=== PATIENT | male | born 1960 | race Caucasian/White ===

== ENCOUNTER 2017-09-22 07:30 | Inpatient (IN) ==
[2017-09-14 12:21] LABS: Appearance,Urine CLEAR; Bilirubin,Urine NEG (NEG); Color,Urine STRAW; Glucose,Urine (UA) NEGATIVE (NEG); Leukocyte Esterase,Urine NEG /uL (NEG); Protein,Urine NEG (NEG); Specific Gravity,Urine 1.009 (1.000-1.035); Urine Blood NEG mg/dL (<0.03); Urobilinogen,Urine NEG (NEG)
[2017-09-14 12:50] LABS: Blood Urea Nitrogen 17 mg/dl (6-20)
[2017-09-14 12:56] LABS: Basophils # (Auto) 0 K/mcL (0.0-0.3); Basophils % (Auto) 0.4 % (0.0-2.0); Eosinophils # (Auto) 0.2 K/mcL (0.0-0.7); Granulocytes % (Auto) 68.7 % (38.0-78.0); Lymphocytes # (Auto) 1.9 K/mcL (1.5-4.8); Lymphocytes % (Auto) 20.9 % (15.5-49.0); Mean Cell Volume 89.2 fL (80.0-100.0); Mean Corpuscular HGB Conc 34.4 g/dL (31.0-36.0); Mean Corpuscular Hemoglobin 30.7 pg (26.0-34.0); Monocytes # (Auto) 0.7 K/mcL (0.1-0.9); Platelet Count 230 K/mcL (140-440); RBC 4.71 M/mcL (4.50-5.90); Red Cell Distribution Width 12.3 % (11.5-14.5)
[~2017-09-22 07:30] MED LIST: 0.9 % SODIUM CHLORIDE 9 ML, KETOROLAC 30 MG, ROPIVACAINE HCL/PF 49.5 ML, EPINEPHrine 0.... IJ SCH; CELECOXIB 200 MG CAPSULE PO SCH; PREGABALIN 75 MG CAPSULE PO SCH; ceFAZolin 1 GM VIAL IV SCH; oxyCODONE 10 MG TAB.ER.12H PO SCH
[2017-09-22] MEDS ORDERED: SCOPOLAMINE 1 PATCH PATCH TOPICAL ONE (17:31)
[2017-09-22] MEDS ORDERED: ceFAZolin 1 GM VIAL IV SCH (18:15)
[2017-09-22] MEDS ORDERED: oxyCODONE HCL 5 MG TABLET PO ONE (20:12)
[2017-09-22] MEDS ORDERED: SUCCINYLCHOLINE 20 MG/ML ML IV ONE (21:30)
[2017-09-22] MEDS ORDERED: MIDAZOLAM 5 MG/5 ML VIAL IV ONE (21:30)
[2017-09-22] MEDS ORDERED: DEXAMETHASONE 10 MG/ML VIAL IV ONE (21:30)
[2017-09-22] MEDS ORDERED: TRANEXAMIC ACID 1,000 MG/10 ML VIAL IV ONE ×2 (21:30→22:54)
[2017-09-22] MEDS ORDERED: PROPOFOL 200 MG/20 ML VIAL IV ONE (21:30)
[2017-09-22] MEDS ORDERED: ROPIVACAINE HCL/PF 20 ML VIAL IJ ONE (21:30)
[2017-09-22] MEDS ORDERED: ONDANSETRON 4 MG/2 ML VIAL IV ONE (21:30)
[2017-09-22] MEDS ORDERED: LIDOCAINE HCL/PF 100 MG/5 ML SYRINGE IV ONE (21:30)
[2017-09-22] MEDS ORDERED: GENTAMICIN SULFATE 800 MG/20 ML VIAL IR ONE (22:06)
[2017-09-22] MEDS ORDERED: ACETAMINOPHEN 1,000 MG/100 ML BOTTLE IV ONE (22:07)
[2017-09-22] MEDS ORDERED: METHOCARBAMOL 1,000 MG/10 ML VIAL IV PRN (22:07)
[2017-09-22] MEDS ORDERED: ONDANSETRON 4 MG/2 ML VIAL IV PRN ×2 (22:07→22:54)
[2017-09-22] MEDS ORDERED: MEPERIDINE 25 MG/ML SYRINGE IV PRN (22:07)
[2017-09-22] MEDS ORDERED: diphenhydrAMINE 50 MG/ML VIAL IV PRN (22:07)
[2017-09-22] MEDS ORDERED: METOCLOPRAMIDE 10 MG/2 ML VIAL IV PRN (22:07)
[2017-09-22] MEDS ORDERED: fentaNYL 100 MCG/2 ML VIAL IV PRN (22:07)
[2017-09-22] MEDS ORDERED: HYDROmorphone 2 MG/ML VIAL IV PRN (22:07)
[2017-09-22] MEDS ORDERED: IPRATROPIUM/ALBUTEROL 3 ML AMPUL.NEB NEB PRN (22:07)
[2017-09-22] MEDS ORDERED: METOPROLOL TARTRATE 5 MG/5 ML VIAL IV PRN (22:07)
[2017-09-22] MEDS ORDERED: ePHEDrine 50 MG/ML AMPUL IV PRN (22:07)
[2017-09-22] MEDS ORDERED: ATROPINE SULFATE 0.4 MG/ML VIAL IV PRN (22:07)
[2017-09-22] MEDS ORDERED: PROMETHAZINE 25 MG/ML VIAL IV PRN (22:07)
[2017-09-22] MEDS ORDERED: NALOXONE HCL 0.4 MG/ML VIAL IV PRN (22:07)
[2017-09-22] MEDS ORDERED: FLUMAZENIL 0.1 MG/ML ML IV PRN (22:07)
[2017-09-22] MEDS ORDERED: LACTATED RINGERS 1,000 ML IV SCH (22:15)
[2017-09-22] MEDS ORDERED: MAGNESIUM HYDROXIDE 30 ML ORAL.SUSP PO PRN (22:54)
[2017-09-22] MEDS ORDERED: ONDANSETRON ODT 4 MG TABLET SL PRN (22:54)
[2017-09-22] MEDS ORDERED: POLYETHYLENE GLYCOL 3350 17 GM PACKET PO PRN (22:54)
[2017-09-22] MEDS ORDERED: FLEETS ADULT ENEMA PR PRN (22:54)
[2017-09-22] MEDS ORDERED: BENZOCAINE/MENTHOL 1 LOZENGE PO PRN (22:54)
[2017-09-22] MEDS ORDERED: BISACODYL 10 MG SUPP.RECT PR PRN (22:54)
--- NOTE | 2017-09-22 22:54 | Brief Operative Note ---
Date of procedure: 09/22/17 Pre-op diagnosis: left knee oa Post-op diagnosis: same Procedure: left total knee arthroplasty Grafts/Implants: Yes Anesthesia: spinal Complications: none Surgeon: Manjinder Marie Fire Hydrant Mechanic: Irina Velazquez Estimated blood loss (cc): 150 Tourniquet Time (Minutes): 69 Specimens Removed/Pathology: none sent Condition: stable Disposition: PACU
[2017-09-22] MEDS ORDERED: GABAPENTIN 300 MG CAPSULE PO PRN (22:56)
[2017-09-22] MEDS ORDERED: DEXTROSE 31 GM ORAL.SUSP PO PRN (22:59)
[2017-09-22] MEDS ORDERED: DEXTROSE 50% 50 ML VIAL IV PRN (22:59)
[2017-09-23] MEDS ORDERED: KETOROLAC 30 MG/ML VIAL ONE ×2 (00:31→05:45)
[2017-09-23] MEDS: ceFAZolin 1 GM VIAL ONE ×2 (00:40→00:43)
[2017-09-23] MEDS: KETOROLAC 30 MG/ML VIAL IV SCH ×4 (00:40→18:28)
[2017-09-23] MEDS: ceFAZolin 1 GM VIAL IV SCH ×3 (00:40→07:19)
[2017-09-23] MEDS: 0.9 % SODIUM CHLORIDE 1,000 ML IV SCH ×4 (00:42→23:25)
[2017-09-23] MEDS: HYDROcodone/APAP 10/325MG TABLET PO PRN ×6 (01:40→22:09)
[2017-09-23] MEDS: HYDROcodone/APAP 10/325MG TABLET PO ONE ×5 (01:40→07:02)
[2017-09-23] MEDS: 0.9 % SODIUM CHLORIDE 10 ML SYRINGE IV SCH ×3 (05:45→22:11)
[2017-09-23] MEDS: FERROUS SULFATE 325 MG TABLET PO SCH ×2 (07:19→17:04)
[2017-09-23] MEDS: metFORMIN 500 MG TABLET PO SCH ×2 (07:19→17:04)
[2017-09-23] MEDS: DIGESTIVE PO SCH ×2 (07:27→15:54)
--- NOTE | 2017-09-23 07:35 | Orthopedic Progress Note ---
Subjective Patient information: Note initiated : 09/23/17 at 7:34 am Service Date, if different from initiated Date: [] Patient: London Cadet 57 y/o M admitted on 09/22/17 for Left Total Knee Arthroplasty. Chief Complaint: [] Interval history: doing well no complaints Objective Vital signs: Vital Signs Temp Pulse Resp BP Pulse Ox 09/23/17 07:00 72 09/23/17 02:57 97.7 F 72 12 120/73 96 09/23/17 01:57 68 124/77 96 09/23/17 01:27 71 131/86 95 09/23/17 00:57 72 127/79 95 09/23/17 00:42 75 126/83 92 09/23/17 00:27 74 129/86 90 09/23/17 00:12 73 138/87 91 09/22/17 23:57 97.0 F 75 12 131/78 94 09/22/17 23:47 98.1 F 72 14 132/86 98 09/22/17 23:35 98.5 F 84 16 134/78 98 09/22/17 23:19 97.0 F 80 10 L 137/68 99 09/22/17 17:30 97.8 F 78 16 112/62 95 Intake and Output 09/22/17 09/23/17 09/23/17 21:59 05:59 13:59 Intake Total 2350 / 2350 Balance 2350 / 2350 Intake: IV 100 / 100 Oral 250 / 250 IV - Manual Only 1999 Other: # Voids 1 Weight 239 lb 250 lb 8 oz Intake & Output: Intake & Output 09/22/17 09/23/17 09/23/17 21:59 05:59 13:59 Intake Total 2350 / 2350 Balance 2350 / 2350 Weight 239 lb 250 lb 8 oz Intake: IV 100 / 100 Oral 250 / 250 IV - Manual Only 1999 Other: # Voids 1 Incision: Yes healing Incision clean and dry: Yes Dressing: Yes clean, Yes dry, Yes intact Weight bearing status: full Neurological exam IM: Yes alert, Yes normal gait, Yes oriented X3, Yes motor sensory intact, Yes neurovascular intact Extremities exam IM: No calf tenderness, Yes Foot pink and warm, Yes neurovascular intact - Labs CBC & BMP: 09/23/17 04:55 09/14/17 10:09 Labs: Orthopedic Labs 09/14/17 10:08 PT 12.6 INR 0.9 09/23/17 09/14/17 04:55 10:09 Hgb 13.5 14.5 Hct 39.6 L 42.0 Assessment and Plan (1) Knee osteoarthritis pod 1 s/p tka pain control dvt prophylaxis dc planning - likely home tomorrow Status: Acute
[2017-09-23] MEDS: INSULIN LISPRO 1 UNIT/0.01 ML UNIT SQ SCH ×4 (07:45→22:10)
--- NOTE | 2017-09-23 08:18 | XRay Report ---
HISTORY: Reason for Exam:Post-Op Total Knee FINDINGS: There is a well-positioned left total knee prosthesis. No fracture is present. There are stable chronic dystrophic calcifications adjacent to the superior aspect of both medial and lateral femoral epicondyles. A spur is seen along the superior border of the anterior tibial tubercle. IMPRESSION: Well-positioned left knee prosthesis Interpreted and Authenticated by: Ruben Shannon 09/23/17
[2017-09-23] MEDS: HYDROCHLOROTHIAZIDE 25 MG TABLET PO SCH (09:05)
[2017-09-23] MEDS: ASPIRIN 81 MG TAB.CHEW PO SCH (09:05)
[2017-09-23] MEDS: DOCUSATE SODIUM 100 MG CAPSULE PO SCH ×2 (09:05→22:10)
[2017-09-23] MEDS: LISINOPRIL 20 MG TABLET PO SCH ×2 (09:05→22:10)
[2017-09-23] MEDS: CLOPIDOGREL 75 MG TABLET PO SCH (09:05)
[2017-09-23] MEDS: GLUCOSAMINE/CHONDROITIN SULF A 1 CAP CAPSULE PO SCH ×2 (09:06→22:10)
[2017-09-23] MEDS: HYDROXYTRYPTOPHAN 100 MG PO SCH ×2 (09:15→22:10)
--- NOTE | 2017-09-23 09:36 | Operative Note ---
DATE OF OPERATION: 09/22/2017 PREOPERATIVE DIAGNOSIS: Degenerative joint disease, left knee. POSTOPERATIVE DIAGNOSIS: Degenerative joint disease, left knee. PROCEDURE: Left total knee arthroplasty. SURGEON: Isaiah Marie M.D. DIRECTOR DIETETICS DEPARTMENT SURGEON: Irina Velazquez PA-C ANESTHESIA: Spinal with LMA assist. ESTIMATED BLOOD LOSS: 150 mL COMPLICATIONS: None noted. SPECIMENS REMOVED: None. DRAINS: None. TOURNIQUET TIME: 69 minutes at 300 mmHg. IMPLANTS: DePuy CMW2 gentamycin bone cement 20 grams x4, DePuy Attune femoral posterior stabilized size 9 left cemented, DePuy Attune tibial insert fixed bearing posterior stabilized size 9, 6 mm AOX, DePuy Attune tibial based fixed bearing size 8 cemented, DePuy Attune patella medialized dome 41 mm cemented AOX. INDICATIONS: The patient has had a long-standing history of worsening pain in the knee that has failed conservative treatment. Radiographs have confirmed advanced degenerative joint disease. After a long discussion about treatment options, the patient elected to proceed with a knee arthroplasty. The risks and benefits were discussed with the patient in detail including, but not limited to, the risks of anesthesia, problems with the heart or lungs related to anesthesia, infection, compromise or injury to the nerves and blood vessels, deep venous thrombosis, pulmonary embolism, pneumonia, continued pain after surgery, worsening pain or symptoms after surgery, swelling, loss of motion, instability, leg length discrepancy, and need for repeat surgery. DESCRIPTION OF PROCEDURE: The patient was seen in the pre-anesthesia waiting room where all questions were answered and the correct side and site were identified and marked. The patient was transferred to the operating room and administered the anesthetic and given pre-operative antibiotics. A time-out was then called. The extremity was prepped and draped, exsanguinated, and the tourniquet was inflated to 300 mmHg. A midline skin incision was then made with a standard medial parapatellar arthrotomy. Debridement of the menisci, ACL, and PCL was performed followed by balancing releases in the medial lateral plane. We then established intramedullary access to both the femur and tibia in a standard fashion. The femoral guide missy was initially placed with the distal femoral guide, pinned into place, and the distal femoral cut was performed and checked with a flat plate. We then turned our attention to the tibia. The intramedullary guide was placed with the proximal tibial cutting block. The block was appropriately positioned off the affected side, varus and valgus was checked with the extra-medullary guide, and the block was pinned into place. The proximal tibial cut was performed and the tibia was prepared for the tibial implant with appropriate rotation. The tibia, femur, and posterior compartment were debrided of osteophytes, loose bodies, and meniscal fragments We then used the gap balancing technique to balance extension with the first two cuts and good balancing was obtained with a 10 millimeter gap block. We turned our attention back to the femur and used the referencing block and implant to size appropriately. Using the gap balancing technique for the flexion space we set our rotation of the femur off the tibial cut. Anesthesia gave the patient 1 gram of Tranexamic Acid via an intravenous route. We placed the 4 in 1 cutting block and made anterior, posterior, and chamfer cuts. Box plasty cuts were then made in a standard fashion for the posterior stabilized prosthesis. We then completed osteophyte release and posterior capsule release from the posterior compartment. Trials were placed and we chose the polyethylene insert thickness that provided the best stability in all planes. With the trials in place, we did a measured resection for a resurfacing patella. We sized the patella and placed the patella trial and performed a lateral facetectomy with the saw and rongeur. Good tracking was obtained. We removed all trials, irrigated and dried all cut surfaces. We cemented the components into place including tibia, femur and patella. We placed a trial liner and held the knee in full extension with the patella compressed while the cement cured. We then removed all excess cement and placed the final polyethylene tibiofemoral component. Irrigation with 3 liters of antibiotic saline was then performed using jet-lavage. We let the tourniquet down and coagulated bleeding vessels. We injected a 100 cubic centimeter volume including Ropivacaine 49.25 cubic centimeters at 5 milligrams per cubic centimeter, Ketorolac 30 milligrams, and Epinephrine 0.5 milligrams into 100 cubic centimeters volume of normal saline. We closed the retinaculum with #2 Stratafix and 0 Vicryl. We closed the subcutaneous tissue and skin in layers out to Dermabond on the skin. A sterile pressure dressing was applied. All needle and sponge counts were correct. The patient was transferred to the recovery room in stable condition. MAITE:[email or web address] Job ID: [id number] Doc ID: [id number] Isaiah Marie MD
[2017-09-23] MEDS: METHOCARBAMOL 750 MG TABLET PO PRN ×2 (11:52→22:09)
[2017-09-23] MEDS ORDERED: SENNOSIDES 1 TABLET PO SCH ×2 (21:00)
[2017-09-23] MEDS ORDERED: ATORVASTATIN 20 MG TABLET PO SCH (21:00)
[2017-09-24] MEDS: KETOROLAC 30 MG/ML VIAL IV SCH ×2 (00:09→06:25)
[2017-09-24] MEDS: HYDROcodone/APAP 10/325MG TABLET PO PRN ×3 (05:10→11:20)
[2017-09-24] MEDS: METHOCARBAMOL 750 MG TABLET PO PRN (05:10)
[2017-09-24] MEDS: 0.9 % SODIUM CHLORIDE 10 ML SYRINGE IV SCH (06:26)
--- NOTE | 2017-09-24 07:20 | Orthopedic Progress Note ---
Subjective Patient information: Note initiated : 09/24/17 at 7:19 am Service Date, if different from initiated Date: [] Patient: London Cadet 57 y/o M admitted on 09/22/17 for Left Total Knee Arthroplasty. Chief Complaint: [] Interval history: doing well, no complaints Objective Vital signs: Vital Signs Temp Pulse Resp BP Pulse Ox 09/24/17 06:38 98.5 F 68 18 127/86 93 09/24/17 04:20 98.5 F 66 20 130/82 95 09/24/17 00:00 98.2 F 74 20 103/62 97 09/23/17 20:00 98.2 F 67 20 100/62 94 09/23/17 16:00 98.6 F 67 14 104/62 94 09/23/17 14:49 74 09/23/17 12:00 98.2 F 74 14 110/64 94 09/23/17 11:00 77 09/23/17 08:00 77 09/23/17 07:52 97.5 F 77 14 134/78 93 Intake and Output 09/23/17 09/24/17 09/24/17 21:59 05:59 13:59 Intake Total 1080 / 1080 400 / 400 1000 / 1000 Output Total 350 / 350 1075 / 1075 200 / 200 Balance 730 / 730 -675 / -675 800 / 800 Intake: Oral 1080 / 1080 400 / 400 1000 / 1000 Output: Void Amount 350 / 350 1075 / 1075 200 / 200 Other: Meal Lunch Percent of Meal Consumed 100% Feeding Ability Independent # Voids 1 1 Weight 260 lb Intake & Output: Intake & Output 09/23/17 09/24/17 09/24/17 21:59 05:59 13:59 Intake Total 1080 / 1080 400 / 400 1000 / 1000 Output Total 350 / 350 1075 / 1075 200 / 200 Balance 730 / 730 -675 / -675 800 / 800 Weight 260 lb Intake: Oral 1080 / 1080 400 / 400 1000 / 1000 Output: Void Amount 350 / 350 1075 / 1075 200 / 200 Other: Meal Lunch Percent of Meal Consumed 100% Feeding Ability Independent # Voids 1 1 Incision: Yes healing Incision clean and dry: Yes Dressing: Yes clean, Yes dry, Yes intact Weight bearing status: full Neurological exam IM: Yes alert, Yes normal gait, Yes oriented X3, Yes motor sensory intact, Yes neurovascular intact Extremities exam IM: No calf tenderness, Yes Foot pink and warm, Yes neurovascular intact - Labs CBC & BMP: 09/24/17 05:07 09/14/17 10:09 Labs: Orthopedic Labs 09/14/17 10:08 PT 12.6 INR 0.9 09/24/17 09/23/17 09/14/17 05:07 04:55 10:09 Hgb 11.3 L 13.5 14.5 Hct 32.6 L 39.6 L 42.0 Assessment and Plan (1) Knee osteoarthritis pod 2 s/p tka pain control dvt prophylaxis dc planning - home today Status: Acute
--- NOTE | 2017-09-24 07:25 | Discharge Summary ---
Ortho Discharge - TKA - Patient Instructions Diet: Regular Diet Activity: activity as tolerated, weight bearing as tolerated Total Knee Protocol: For Total Knee: Start ROM KIKE with stationary bike or rocking chair. Work on gaining full extension of knee. Posterior dislocation precautions provided. Hip abductor strengthening and gait training instructions provided. Apply Cryocuff as instructed. Dressing Care: May shower in 2 days Patient Education: Total Knee Replacement (DC) Additional Instructions: Discharge Instructions: Resume home diet as tolerated. Do the exercises at home that physical therapy gave you. Elevate and use your Cryocuff or ice packs as directed, on for 20 minutes at a time throughout the day. This and elevation will help with pain and swelling. Follow up with [facility] on 10/07/17 at 10:20 am. Follow up with [facility] on . Take your prescription, photo ID, insurance cards, and current medication list with you to your first physical therapy appointment. Wear comfortable clothing for your physical therapy. Weight bearing as tolerated. You have Dermabond (a dressing with a mesh-like appearance), DO NOT remove mesh. Cover site daily with gauze dressing. You may start showering on post op day #2. The Dermabond dressing can get wet, do not scrub dressing. Pat dry, then place new dressing (above). Take Aspirin twice daily, for 30 days, as prescribed to prevent blood clots ( see medication list). Pain medication can cause constipation. Take an over the counter stool softener while on pain medication. Your prescriptions are with your discharge information. Some medications were electronically transmitted to your pharmacy of choice. Take your prescription to pick and shovel man any medication or equipment (such as walker, crutches, toilet riser or C.P.M.) Return to the ER for uncontrolled pain, unable to go to the bathroom, chills, fever, nausea and/or vomiting, signs of infection, bleeding, redness, swelling, chest pain, shortness of breath or other acute symptom. - Problem Maintenance (1) Knee osteoarthritis Status: Acute - Follow Up Plan Follow Up Appointments: Manjinder Marie MD [Physician] - 10/07/17 10:20 am () Disposition: Home, Self-Care Prognosis: Good Rehab Potential: Good I certify that the patient requires SNF services: No Overall status at discharge: patient is progressing back to baseline
[2017-09-24] MEDS: DOCUSATE SODIUM 100 MG CAPSULE PO SCH (09:11)
[2017-09-24] MEDS: metFORMIN 500 MG TABLET PO SCH (09:11)
[2017-09-24] MEDS: FERROUS SULFATE 325 MG TABLET PO SCH (09:11)
[2017-09-24] MEDS: ASPIRIN 81 MG TAB.CHEW PO SCH (09:11)
[2017-09-24] MEDS: GLUCOSAMINE/CHONDROITIN SULF A 1 CAP CAPSULE PO SCH (09:11)
[2017-09-24] MEDS: CLOPIDOGREL 75 MG TABLET PO SCH (09:11)
[2017-09-24] MEDS: LISINOPRIL 20 MG TABLET PO SCH (09:11)
[2017-09-24] MEDS: HYDROCHLOROTHIAZIDE 25 MG TABLET PO SCH (09:11)
[2017-09-24] MEDS: INSULIN LISPRO 1 UNIT/0.01 ML UNIT SQ SCH (09:14)
[2017-09-24] MEDS: 0.9 % SODIUM CHLORIDE 1,000 ML IV SCH (11:26)
[2017-09-24] MEDS: HYDROXYTRYPTOPHAN 100 MG PO SCH (11:26)
[2017-09-24] MEDS: DIGESTIVE PO SCH (11:26)
== END 2017-09-24 11:30 | disposition home or self-care (01) | DRG 470 ==
LOC: MEDSUR 15:26
PROVIDERS: ADMIT Orthopaedic Surgery Sports Medicine; ATTEND Orthopaedic Surgery Sports Medicine

== ENCOUNTER 2019-02-08 05:07 | Inpatient (IN) ==
[2019-02-02 15:43] LABS: Appearance,Urine CLEAR; Bilirubin,Urine NEG (NEG); Color,Urine STRAW; Culture Indicated,Urine NO; Glucose,Urine (UA) NEGATIVE (NEG); Ketones,Urine NEG (NEG); Leukocyte Esterase,Urine NEG /uL (NEG); Nitrate,Urine NEG (NEG); Protein,Urine NEG (NEG); Specific Gravity,Urine 1.011 (1.000-1.035); Urine Blood NEG mg/dL (<0.03); Urobilinogen,Urine NEG (NEG)
[2019-02-02 18:32] LABS: Basophils # (Auto) 0 K/mcL (0.0-0.3); Basophils % (Auto) 0.3 % (0.0-2.0); Eosinophils # (Auto) 0.2 K/mcL (0.0-0.7); Eosinophils % (Auto) 1.9 % (0.0-7.0); Granulocytes % (Auto) 69.4 % (38.0-78.0); Lymphocytes # (Auto) 2.2 K/mcL (1.5-4.8); Lymphocytes % (Auto) 20.3 % (15.5-49.0); Mean Cell Volume 88.1 fL (80.0-100.0); Mean Corpuscular HGB Conc 33.2 g/dL (31.0-36.0); Mean Platelet Volume 7.6 fL (7.4-10.4); Monocytes # (Auto) 0.9 K/mcL (0.1-0.9); Monocytes % (Auto) 8.1 % (1.0-12.0); Platelet Count 293 K/mcL (140-440); RBC 4.77 M/mcL (4.50-5.90); Red Cell Distribution Width 14.6 % (11.5-14.5); WBC 10.7 K/mcL (4.5-11.0)
[2019-02-02 19:18] LABS: INR 0.9 (0.9-1.1); Prothrombin Time 12.4 sec (11.9-14.5)
[2019-02-02 19:51] LABS: Blood Urea Nitrogen 15 mg/dl (6-20); Carbon Dioxide 25 mmol/L (22-30); Chloride 99 mmol/L (96-108); Glomerular Filtration Rate 82; Glucose 80 mg/dL (70-105)
[2019-02-02 19:57] LABS: Estimated Average Glucose(eAG) 134 mg/dL; Hemoglobin A1C 6.3 % HGB (4.0-6.0)
[2019-02-08] MEDS ORDERED: SCOPOLAMINE 1 PATCH PATCH TOPICAL ONE (06:00)
[2019-02-08] MEDS ORDERED: oxyCODONE 10 MG TAB.ER.12H PO SCH (06:00)
[2019-02-08] MEDS ORDERED: CELECOXIB 200 MG CAPSULE PO SCH (06:00)
[2019-02-08] MEDS ORDERED: ceFAZolin 2 GM in DEXTROSE 5% IN WATER 50 ML IV SCH (06:00)
[2019-02-08] MEDS ORDERED: 0.9 % SODIUM CHLORIDE 9 ML, KETOROLAC 30 MG, ROPIVACAINE HCL/PF 49.5 ML, EPINEPHrine 0.... IJ SCH (06:00)
[2019-02-08] MEDS ORDERED: PREGABALIN 75 MG CAPSULE PO SCH (06:00)
[2019-02-08] MEDS ORDERED: IPRATROPIUM/ALBUTEROL 3 ML AMPUL.NEB NEB PRN ×2 (06:06→09:21)
[2019-02-08] MEDS ORDERED: SCOPOLAMINE 1 PATCH PATCH TOPICAL PRN (06:06)
[2019-02-08] MEDS ORDERED: GENTAMICIN SULFATE 800 MG/20 ML VIAL IR ONE (07:17)
[2019-02-08] MEDS ORDERED: ONDANSETRON 4 MG/2 ML VIAL IV ONE (07:40)
[2019-02-08] MEDS ORDERED: LIDOCAINE HCL/PF 100 MG/5 ML SYRINGE IV ONE (07:40)
[2019-02-08] MEDS ORDERED: PHENYLEPHRINE 10 MG/ML VIAL IV ONE (07:40)
[2019-02-08] MEDS ORDERED: TRANEXAMIC ACID 1,000 MG/10 ML VIAL IV ONE (07:40)
[2019-02-08] MEDS ORDERED: KETAMINE 100 MG/ML ML IV ONE (07:40)
[2019-02-08] MEDS ORDERED: GLYCOPYRROLATE 0.2 MG/ML VIAL IV ONE (07:40)
[2019-02-08] MEDS ORDERED: ROPIVACAINE HCL/PF 30 ML VIAL IJ ONE (07:40)
[2019-02-08] MEDS ORDERED: MIDAZOLAM 2 MG/2 ML VIAL IV ONE (07:40)
[2019-02-08] MEDS ORDERED: DEXAMETHASONE 4 MG/ML VIAL IV ONE (07:40)
[2019-02-08] MEDS ORDERED: PROPOFOL 200 MG/20 ML VIAL IV ONE (07:40)
[2019-02-08] MEDS ORDERED: METHOCARBAMOL 1,000 MG/10 ML VIAL IV PRN (09:21)
[2019-02-08] MEDS ORDERED: MEPERIDINE 25 MG/ML SYRINGE IV PRN (09:21)
[2019-02-08] MEDS ORDERED: ACETAMINOPHEN 1,000 MG/100 ML BOTTLE IV ONE (09:21)
[2019-02-08] MEDS ORDERED: fentaNYL 100 MCG/2 ML VIAL IV PRN (09:21)
[2019-02-08] MEDS ORDERED: ONDANSETRON 4 MG/2 ML VIAL IV PRN ×2 (09:21→09:24)
--- NOTE | 2019-02-08 09:23 | Brief Operative Note ---
Date of procedure: 02/08/19 Pre-op diagnosis: right knee osteoarthritis Post-op diagnosis: same Procedure: right total knee arthroplasty Grafts/Implants: Yes Anesthesia: spinal Complications: none Surgeon: Manjinder Marie Outboard Technician: Irina Velazquez Estimated blood loss (cc): 150 Tourniquet Time (Minutes): 70 Specimens Removed/Pathology: none sent Condition: stable Disposition: PACU
[2019-02-08] MEDS ORDERED: ONDANSETRON 4 MG ODT TABLET SL PRN (09:24)
[2019-02-08] MEDS ORDERED: METHOCARBAMOL 750 MG TABLET PO PRN (09:24)
[2019-02-08] MEDS ORDERED: DEXTROSE 31 GM ORAL.SUSP PO PRN (09:24)
[2019-02-08] MEDS ORDERED: DEXTROSE 50% 50 ML VIAL IV PRN (09:24)
[2019-02-08] MEDS ORDERED: TRANEXAMIC ACID 1,000 MG/10 ML VIAL IV SCH (09:24)
[2019-02-08] MEDS ORDERED: BENZOCAINE/MENTHOL 1 LOZENGE PO PRN (09:24)
[2019-02-08] MEDS ORDERED: FLEETS ADULT ENEMA PR PRN (09:24)
[2019-02-08] MEDS ORDERED: BISACODYL 10 MG SUPP.RECT PR PRN (09:24)
[2019-02-08] MEDS ORDERED: MAGNESIUM HYDROXIDE 30 ML ORAL.SUSP PO PRN (09:24)
[2019-02-08] MEDS ORDERED: POLYETHYLENE GLYCOL 3350 17 GM PACKET PO PRN (09:24)
[2019-02-08] MEDS ORDERED: LACTATED RINGERS 1,000 ML IV SCH (09:30)
--- NOTE | 2019-02-08 09:53 | Operative Note ---
DATE OF OPERATION: 02/08/2019 PREOPERATIVE DIAGNOSIS: Degenerative joint disease, right knee. POSTOPERATIVE DIAGNOSIS: Degenerative joint disease, right knee. PROCEDURE: Right total knee arthroplasty. SURGEON: Isaiah Marie M.D. SUPERVISOR CUSTOMER COMPLAINT SERVICE SURGEON: Irina Velazquez PA-C. The PA's assistance was required for the safe and efficient completion of the entire case. This provider's expertise and technical skill were required throughout the case. The PA assisted with preoperative coordination, intraoperative retraction, wound closure, dressing and splint application, as well as postoperative documentation and care coordination. ANESTHESIA: Spinal with LMA assist. ESTIMATED BLOOD LOSS: 150 mL. COMPLICATIONS: None noted. SPECIMENS REMOVED: None. DRAINS: None. TOURNIQUET TIME: 70 minutes at 300 mmHg. IMPLANTS: DePuy Attune knee system tibial base fixed bearing size 7, cemented; DePuy Attune tibial insert fixed bearing posterior stabilized size 8, 5 mm AOX; DePuy Attune femoral posterior stabilized size 8 right, cemented; DePuy Attune patella medialized dome 41 mm cemented AOX; DePuy CMW2 gentamicin bone cement 20 grams x6. INDICATIONS: The patient has had a long-standing history of worsening pain in the knee that has failed conservative treatment. Radiographs have confirmed advanced degenerative joint disease. After a long discussion about treatment options, the patient elected to proceed with a knee arthroplasty. The risks and benefits were discussed with the patient in detail including, but not limited to, the risks of anesthesia, problems with the heart or lungs related to anesthesia, infection, compromise or injury to the nerves and blood vessels, deep venous thrombosis, pulmonary embolism, pneumonia, continued pain after surgery, worsening pain or symptoms after surgery, swelling, loss of motion, instability, leg length discrepancy, and need for repeat surgery. DESCRIPTION OF PROCEDURE: The patient was seen in the pre-anesthesia waiting room where all questions were answered and the correct side and site were identified and marked. The patient was transferred to the operating room and administered the anesthetic and given pre-operative antibiotics. A time-out was then called. The extremity was prepped and draped, exsanguinated, and the tourniquet was inflated to 300 mmHg. A midline skin incision was then made with a standard medial parapatellar arthrotomy. Debridement of the menisci, ACL, and PCL was performed followed by balancing releases in the medial lateral plane. We then established intramedullary access to both the femur and tibia in a standard fashion. The femoral guide missy was initially placed with the distal femoral guide, pinned into place, and the distal femoral cut was performed and checked with a flat plate. We then turned our attention to the tibia. The intramedullary guide was placed with the proximal tibial cutting block. The block was appropriately positioned off the affected side, varus and valgus was checked with the extra-medullary guide, and the block was pinned into place. The proximal tibial cut was performed and the tibia was prepared for the tibial implant with appropriate rotation. The tibia, femur, and posterior compartment were debrided of osteophytes, loose bodies, and meniscal fragments We then used the gap balancing technique to balance extension with the first two cuts and good balancing was obtained with a 10 millimeter gap block. We turned our attention back to the femur and used the referencing block and implant to size appropriately. Using the gap balancing technique for the flexion space we set our rotation of the femur off the tibial cut. Anesthesia gave the patient 1 gram of Tranexamic Acid via an intravenous route. We placed the 4 in 1 cutting block and made anterior, posterior, and chamfer cuts. Box plasty cuts were then made in a standard fashion for the posterior stabilized prosthesis. We then completed osteophyte release and posterior capsule release from the posterior compartment. Trials were placed and we chose the polyethylene insert thickness that provided the best stability in all planes. With the trials in place, we did a measured resection for a resurfacing patella. We sized the patella and placed the patella trial and performed a lateral facetectomy with the saw and rongeur. Good tracking was obtained. We removed all trials, irrigated and dried all cut surfaces. We cemented the components into place including tibia, femur and patella. We placed a trial liner and held the knee in full extension with the patella compressed while the cement cured. We then removed all excess cement and placed the final polyethylene tibiofemoral component. Irrigation with 3 liters of antibiotic saline was then performed using jet-lavage. We let the tourniquet down and coagulated bleeding vessels. We injected a 100 cubic centimeter volume including Ropivacaine 49.25 cubic centimeters at 5 milligrams per cubic centimeter, Ketorolac 30 milligrams, and Epinephrine 0.5 milligrams into 100 cubic centimeters volume of normal saline. We closed the retinaculum with #2 Stratafix and 0 Vicryl. We closed the subcutaneous tissue and skin in layers out to Dermabond on the skin. A sterile pressure dressing was applied. All needle and sponge counts were correct. The patient was transferred to the recovery room in stable condition. MAITE:[email or web address] Job ID: [id number] Doc ID: [id number] Isaiah Marie MD
--- NOTE | 2019-02-08 10:14 | XRay Report ---
CLINICAL INFORMATION: Right knee replacement TECHNIQUE: AP and crosstable lateral right knee COMPARISON: None. FINDINGS: Status post right total knee arthroplasty. Prosthetic components are in anatomic positions. There is focal density along the lateral aspects of the joint space which may be the methylmethacrylate. There is postsurgical intra-articular and periarticular gas. IMPRESSION: Status post right total knee arthroplasty Interpreted and Authenticated by: Manjinder Pizarro 02/08/19
[2019-02-08] MEDS: LACTATED RINGERS 1,000 ML IV SCH ×3 (11:35→19:40)
[2019-02-08] MEDS: INSULIN LISPRO 1 UNIT/0.01 ML UNIT SQ SCH ×3 (12:08→21:41)
[2019-02-08] MEDS: metFORMIN 500 MG TABLET PO SCH ×2 (12:09→16:58)
[2019-02-08] MEDS: KETOROLAC 30 MG/ML VIAL IV SCH ×3 (13:34→23:25)
[2019-02-08] MEDS: 0.9 % SODIUM CHLORIDE 10 ML SYRINGE IV SCH ×2 (13:36→20:59)
[2019-02-08] MEDS: HYDROcodone/APAP 10/325MG TABLET PO PRN ×3 (14:29→23:25)
[2019-02-08] MEDS: ceFAZolin 1 GM VIAL IV SCH ×2 (14:31→23:25)
[2019-02-08] MEDS: ASPIRIN 81 MG TAB.CHEW PO SCH (20:59)
[2019-02-08] MEDS: DOCUSATE SODIUM 100 MG CAPSULE PO SCH (20:59)
[2019-02-08] MEDS ORDERED: SENNOSIDES 1 TABLET PO SCH (21:00)
[2019-02-08] MEDS ORDERED: ATORVASTATIN 40 MG TABLET PO SCH (21:00)
[2019-02-08] MEDS ORDERED: GABAPENTIN 300 MG CAPSULE PO PRN (21:00)
[2019-02-09] MEDS: LACTATED RINGERS 1,000 ML IV SCH ×2 (01:30→10:18)
[2019-02-09] MEDS: HYDROcodone/APAP 10/325MG TABLET PO PRN ×3 (03:52→12:40)
[2019-02-09 05:26] LABS: Hematocrit 30.3 % (41.0-55.0); Hemoglobin 10.5 g/dL (13.5-16.5)
[2019-02-09] MEDS: 0.9 % SODIUM CHLORIDE 10 ML SYRINGE IV SCH (06:04)
[2019-02-09] MEDS: KETOROLAC 30 MG/ML VIAL IV SCH ×2 (06:04→11:08)
[2019-02-09] MEDS: INSULIN LISPRO 1 UNIT/0.01 ML UNIT SQ SCH ×2 (06:48→11:15)
--- NOTE | 2019-02-09 06:55 | Orthopedic Progress Note ---
Subjective Patient information: Note initiated : 02/09/19 at 6:54 am Service Date, if different from initiated Date: [] Patient: London Cadet 58 y/o M admitted on 02/08/19 for Right Total Knee Arthroplasty. Chief Complaint: [] Interval history: doing well. pain under control Objective Vital signs: Vital Signs Temp Pulse Resp BP BP Pulse Ox 02/09/19 06:21 18 02/09/19 03:43 98.0 F 76 22 116/68 96 02/08/19 23:36 98.5 F 67 22 141/88 93 02/08/19 18:43 98.6 F 73 24 H 125/78 94 02/08/19 18:20 73 02/08/19 16:00 98.5 F 72 18 133/77 95 02/08/19 14:00 69 02/08/19 12:15 97.7 F 67 18 126/76 96 02/08/19 11:45 68 16 125/77 95 02/08/19 11:15 66 16 124/75 95 02/08/19 11:00 67 15 121/77 94 02/08/19 10:45 69 14 127/76 94 02/08/19 10:30 97.8 F 76 14 126/66 93 02/08/19 10:25 69 02/08/19 10:21 97.9 F 73 13 127/75 95 02/08/19 10:08 84 14 118/74 97 02/08/19 10:03 68 12 103/51 100 02/08/19 09:58 69 11 L 100/46 100 02/08/19 09:53 67 11 L 102/46 99 02/08/19 09:48 67 10 L 99/55 100 02/08/19 09:43 69 11 L 102/82 99 02/08/19 09:38 98.2 F 68 12 105/57 97 Intake and Output 02/08/19 02/09/19 02/09/19 21:59 05:59 13:59 Intake Total 2460 1179 Output Total 1300 600 Balance 1160 579 Intake: IV 1000 979 Lactated Ringers 1,000 ml @ 125 1000 979 mls/hr IV .Q8H JANNA Rx#: [id number] Oral 1460 200 Output: Void Amount 1300 600 Other: Meal Dinner Nourishment/Supplement Percent of Meal Consumed 100% Feeding Ability Assist with Tray Set Up Nourishment/Supplement name Yogurt Urine Appearance Clear Clear Urine Color Bright Yellow Bright Yellow Urine Odor Normal Normal # Voids 1 Weight 269 lb 14.4 oz Intake & Output: Intake & Output 02/08/19 02/09/19 02/09/19 21:59 05:59 13:59 Intake Total 2460 1179 Output Total 1300 600 Balance 1160 579 Weight 269 lb 14.4 oz Intake: IV 1000 979 Lactated Ringers 1,000 ml @ 125 1000 979 mls/hr IV .Q8H JANNA Rx#: [id number] Oral 1460 200 Output: Void Amount 1300 600 Other: Meal Dinner Nourishment/Supplement Percent of Meal Consumed 100% Feeding Ability Assist with Tray Set Up Nourishment/Supplement name Yogurt Urine Appearance Clear Clear Urine Color Bright Yellow Bright Yellow Urine Odor Normal Normal # Voids 1 Incision: Yes healing Incision clean and dry: Yes Dressing: Yes clean, Yes dry, Yes intact Weight bearing status: full Neurological exam IM: Yes abnormal gait, Yes alert, Yes oriented X3, Yes motor sensory intact, Yes neurovascular intact Extremities exam IM: No calf tenderness, Yes Foot pink and warm, Yes neurovascular intact - Labs CBC & BMP: 02/09/19 04:10 02/02/19 13:47 Labs: Orthopedic Labs 02/02/19 13:46 PT 12.4 INR 0.9 02/09/19 02/02/19 04:10 13:14 Hgb 10.5 L 14.0 Hct 30.3 L 42.0 Assessment and Plan (1) Knee osteoarthritis pod 1 s/p tka wbat pain control dvt prophylaxis d/c planning - rehab vs home depending on how he progresses with pain and pt Status: Acute
--- NOTE | 2019-02-09 06:57 | Discharge Summary ---
Ortho Discharge - TKA - Patient Instructions Diet: Regular Diet Activity: ambulate with assistive device, weight bearing as tolerated Total Knee Protocol: For Total Knee: Start ROM KIKE with stationary bike or rocking chair. Work on gaining full extension of knee. Posterior dislocation precautions provided. Hip abductor strengthening and gait training instructions provided. Apply Cryocuff as instructed. Dressing Care: May shower in 2 days - Problem Maintenance (1) Knee osteoarthritis Status: Acute - Follow Up Plan Follow Up Appointments: Irina Velazquez PA-C [Physician Hose Cementer] - 02/23/19 9:00 am Disposition: Xfer SNF Prognosis: Good Rehab Potential: Good I certify that the patient requires SNF services: Yes Overall status at discharge: patient is progressing back to baseline
[2019-02-09] MEDS ORDERED: OMEPRAZOLE 20 MG CAPSULE PO SCH (07:30)
[2019-02-09] MEDS: ASPIRIN 81 MG TAB.CHEW PO SCH (08:09)
[2019-02-09] MEDS: DOCUSATE SODIUM 100 MG CAPSULE PO SCH (08:09)
[2019-02-09] MEDS: metFORMIN 500 MG TABLET PO SCH ×2 (08:09→11:05)
[2019-02-09] MEDS ORDERED: amLODIPine 5 MG TABLET PO SCH (09:00)
[2019-02-09] MEDS ORDERED: HYDROCHLOROTHIAZIDE 12.5 MG CAPSULE PO SCH (09:00)
[2019-02-09] MEDS ORDERED: LISINOPRIL 20 MG TABLET PO SCH (09:00)
== END 2019-02-09 13:10 | DRG 470 ==
LOC: MEDSUR 05:07
PROVIDERS: ADMIT Orthopaedic Surgery Sports Medicine; ATTEND Orthopaedic Surgery Sports Medicine